=== PATIENT | male | born 2000 | race Caucasian/White ===

== ENCOUNTER 2018-08-08 15:59 | Emergency (ER) | payer BC, OTHER ==
[2018-08-08] MEDS ORDERED: KETOROLAC 30 MG/1 ML SDV IVP ONE (16:19)
[2018-08-08] MEDS ORDERED: METOCLOPRAMIDE 10 MG/2 ML VIAL IVP ONE (16:19)
[2018-08-08] MEDS ORDERED: NS 1,000 ML IV ONE (16:19)
--- NOTE | 2018-08-08 16:22 | EDPHY ---
H & P Stated Complaint: Fell skiing; hit head;+helmet; +LOC Time Seen by Provider: 08/08/18 16:13 HPI/ROS: CHIEF COMPLAINT: Concussion HISTORY OF PRESENT ILLNESS: Patient is a 18-year-old man who was skiing with his friends. He went off of a jump and landed on his back and hit his head hard. He was wearing helmet. He was unconscious for about 20 sec according to his friends. He was taken down a slide by skirt maker. He denies neck pain and was not placed in a collar. His friends brought him here. He feels slight nausea but no vomiting. He has a mild headache. He states that he feels like he is not thinking clearly. No bleeding. No trouble ambulating. Severity: Moderate Modifying factors: Improving slightly with time REVIEW OF SYSTEMS: Constitutional: denies: chills, fever, recent illness, recent injury EENTM: denies: blurred vision, double vision, nose congestion Respiratory: denies: cough, shortness of breath Cardiac: denies: chest pain, irregular heart rate, lightheadedness, palpitations Gastrointestinal/Abdominal: denies: abdominal pain, diarrhea, nausea, vomiting, blood streaked stools Genitourinary: denies: dysuria, frequency, hematuria, pain Musculoskeletal: denies: joint pain, muscle pain Skin: denies: lesions, rash, jaundice, bruising Neurological: See HPI Hematologic/Lymphatic: denies: blood clots, easy bleeding, easy bruising Immunologic/allergic: denies: HIV/AIDS, transplant 10 systems reviewed and negative except as noted EXAM: GENERAL: Well-appearing, well-nourished and in no acute distress. HEAD: Atraumatic, normocephalic. EYES: Pupils equal round and reactive to light, extraocular movements intact, sclera anicteric, conjunctiva are normal. ENT: TMs normal, nares patent, oropharynx clear without exudates. Moist mucous membranes. NECK: Normal range of motion, supple without lymphadenopathy or JVD. LUNGS: Breath sounds clear to auscultation bilaterally and equal. No wheezes rales or rhonchi. HEART: Regular rate and rhythm without murmurs, rubs or gallops. ABDOMEN: Soft, nontender, normoactive bowel sounds. No guarding, no rebound. No masses appreciated. BACK: No CVA tenderness, no spinal tenderness, step-offs or deformities EXTREMITIES: Normal range of motion, no pitting or edema. No clubbing or cyanosis. NEUROLOGICAL: Cranial nerves II through XII grossly intact. Normal speech, normal gait. 5/5 strength, normal movement in all extremities, normal sensation , normal reflexes, normal heel to toe, normal finger to nose, negative Romberg PSYCH: Normal mood, normal affect. SKIN: Warm, dry, normal turgor, no visible rashes or lesions. Source: Patient Exam Limitations: Clinical condition - Personal History Current Tetanus Diphtheria and Acellular Pertussis (TDAP): Yes - Medical/Surgical History Hx Asthma: No Hx Chronic Respiratory Disease: No Hx Diabetes: No Hx Cardiac Disease: No Hx Renal Disease: No Hx Cirrhosis: No Hx Alcoholism: No Hx HIV/AIDS: No Hx Splenectomy or Spleen Trauma: No Other PMH: healthy - Family History Significant Family History: No pertinent family hx - Social History Smoking Status: Never smoked Alcohol Use: Sober Constitutional: Initial Vital Signs Temperature (C) 36.5 C 08/08/18 16:00 Heart Rate 86 08/08/18 16:00 Respiratory Rate 16 08/08/18 16:00 Blood Pressure 120/72 08/08/18 16:00 O2 Sat (%) 97 08/08/18 16:00 O2 Delivery Mode Room Air Allergies/Adverse Reactions: Penicillins Allergy (Intermediate, Verified 08/08/18 16:03) Hives Home Medications: Medication Instructions Recorded Metoclopramide [Reglan 10 mg tab 10 mg PO BID PRN #10 tab 08/08/18 (RX)] Medical Decision Making - Diagnostics Imaging Results: Imaging Impressions Head CT 08/08/18 16:19 Impression: 1. Negative noncontrast CT of the head with no intracranial posttraumatic sequela identified. 2. See above report for additional findings. Results called and discussed with BEAU KEATING M.D. on 08/08/2018 at 16:54. Imaging: Discussed imaging studies w/ call taker Radiologist ED Course/Re-evaluation: 5:[address] is reassuring. We discussed concussion and stepwise return to activity. I encouraged him to sleep as much as possible over the next 48 hr. He is happy with this and eager to go home. He is feeling much better after Reglan. Differential Diagnosis: Partial list of the Differential diagnosis considered include but were not limited to; concussion, intracranial injury and although unlikely based on the history and physical exam, I also considered fracture, neck injury. I discussed these differential diagnoses and the plan with the patient as well as the usual and expected course. The patient understands that the diagnosis is provisional and that in medicine we are not always correct and that further workup is often warranted. Usual and customary warnings were given. All of the patient's questions were answered. The patient was instructed to return to the emergency department should the symptoms at all worsen or return, otherwise to followup with the physician as we discussed. - Data Points Medications Given: Discontinued Medications Sodium Chloride (Ns) 1,000 mls @ 0 mls/hr IV ONCE ONE; Wide Open PRN Reason: Protocol Stop: 08/08/18 16:20 Last Admin: 08/08/18 16:26 Dose: 1,000 mls Ketorolac Tromethamine (Toradol) 15 mg IVP EDNOW ONE Stop: 08/08/18 16:20 Last Admin: 08/08/18 16:26 Dose: 15 mg Metoclopramide HCl (Reglan Injection) 10 mg IVP EDNOW ONE Stop: 08/08/18 16:20 Last Admin: 08/08/18 16:26 Dose: 10 mg Departure - Departure Disposition: Home, Routine, Self-Care Clinical Impression: Concussion Qualifiers: Encounter type: initial encounter Loss of consciousness presence/duration: with LOC of 30 min or less Qualified Code(s): S06.0X1A - Concussion with loss of consciousness of 30 minutes or less, initial encounter Condition: Fair Instructions: Concussion (ED) Referrals: NONE *PRIMARY CARE P,. [Primary Care Provider] - As per Instructions Cecy Craft MD [Medical Doctor] - 3-4 days, if not improved Prescriptions: Metoclopramide [Reglan 10 mg tab (RX)] 10 mg PO BID PRN #10 tab PRN Reason: Headache
[2018-08-08 17:38] VITALS: BP 114/51
== END 2018-08-08 17:38 | disposition home or self-care (01) ==
DX: S06.0X1A Concussion with loss of consciousness of 30 minutes or less, initial encounter (principal); E86.9 Volume depletion, unspecified; V00.321A Fall from snow-skis, initial encounter; Y93.23 Activity, snow (alpine) (downhill) skiing, snowboarding, sledding, tobogganing and snow tubing; Y92.828 Other wilderness area as the place of occurrence of the external cause; Y99.8 Other external cause status
CPT/HCPCS: 96374; J1885; J2765